=== PATIENT | male | born 1960 | race Caucasian/White ===

== ENCOUNTER → 2016-03-16 | Outpatient (CLI) | payer OTHER ==
[~2016-03-16] MED LIST: ANT25 PO
[2016-03-16 18:01] LABS: ALT/SGPT 114 U/L (12-78); AST/SGOT 64 U/L (15-37); BLOOD UREA NITROGEN 14 mg/dl (7-18); BUN/CREATININE RATIO 14.9 (10-20); CALCIUM 8.8 mg/dl (8.5-10.1); CARBON DIOXIDE 27 mmol/L (21-32); CHLORIDE 104 mmol/L (98-107); CREATININE 0.95 mg/dl (0.60-1.40); GLUCOSE 178 mg/dl (70-99); SODIUM 140 mmol/L (136-145)
[2016-03-16 18:04] LABS: ALKALINE PHOSPHATASE 69 U/L (45-117)
[2016-03-16 18:27] LABS: RATIO 35.3 mcg/mg (0-30.0)
[2016-03-17 06:06] LABS: ESTIMATED AVERAGE GLUCOSE 154 mg/dl; HA1C FLAG Normal (Normal)
== END | disposition home or self-care (01) ==
LOC: C.LABMFLN 12:14
PROVIDERS: ATTEND Family Medicine
DX: E11.9 Type 2 diabetes mellitus without complications (principal); E55.9 Vitamin D deficiency, unspecified